=== PATIENT | female | born 1965 | race Caucasian/White ===

== ENCOUNTER 2019-05-04 10:54 | Emergency (ER) | payer MEDICAID ==
[2019-05-04 10:55] VITALS: BP_SYST 148
--- NOTE | 2019-05-04 10:55 | NUR ---
BROUGHT BACK TO BED #2 AND TRIAGED. PT WAS SENT HERE FROM DR LARIOS OFFICE. REPORT GIVEN TO CALI
--- NOTE | 2019-05-04 11:00 | NUR ---
Pt sent by Dr. Hi for c/o evaluation of DVT symptoms after long flight.
--- NOTE | 2019-05-04 11:28 | NUR ---
ER at bedside examining patient.
[2019-05-04 12:00] LABS: HEMATOCRIT 39.1 % (36-48); HEMOGLOBIN 13.5 g/dL (12.0-16.0); LYMPHOCYTES % (AUTO) 19.7 % (20.5-51.5); MEAN CORPUSCULAR HEMOGLOBIN 34 pg (27-31); MEAN CORPUSCULAR HGB CONC 35 % (32-36); MEAN CORPUSCULAR VOLUME 98 fL (79.0-98.0); MONOCYTES % (AUTO) 6.9 % (1.7-9.3); NEUTROPHILS % (AUTO) 70.7 % (40.0-70.0); PLATELET COUNT (AUTO) 340 K/uL (130-430); RED BLOOD CELL COUNT(AUTO) 3.99 MIL/uL (4.2-6.2); RED CELL DISTRIBUTION WIDTH 12.6 % (9.0-15.0); WHITE BLOOD COUNT (AUTO) 6.3 K/uL (4.8-10.8)
[2019-05-04 12:01] LABS: BASOPHILS % (AUTO) 0.8 % (0.0-2.0); EOSINOPHILS # (AUTO) 0.1 K/uL (0.0-0.4); EOSINOPHILS % (AUTO) 1.9 % (0.0-4.0); LYMPHOCYTES # (AUTO) 1.2 K/uL (1.0-5.5); MONOCYTES # (AUTO) 0.4 K/uL (0.0-1.0); NEUTROPHILS # (AUTO) 4.5 K/uL (1.8-7.7)
[2019-05-04 12:08] LABS: CALCIUM 9.3 mg/dL (8.4-11.0); POTASSIUM 3.5 mmol/L (3.5-5.1)
[2019-05-04 12:09] LABS: ALBUMIN 3.9 g/dL (3.4-4.8); CREATININE 0.6 mg/dL (0.55-1.30); TOTAL BILIRUBIN 0.3 mg/dL (0.0-1.0)
[2019-05-04 12:14] LABS: INR 0.9 (0.8-1.2); PROTHROMBIN TIME 9.4 SECS (9.5-12.5)
[2019-05-04 14:00] VITALS: BP_SYST 145
== END 2019-05-04 14:00 | disposition home or self-care (01) ==
LOC: SED 10:54
DX: M71.21 Synovial cyst of popliteal space [Baker], right knee (principal); R03.0 Elevated blood-pressure reading, without diagnosis of hypertension
CPT/HCPCS: 36415; 80053; 85025; 85379; 85610-TC; 93005; 93971; 99284

== ENCOUNTER 2019-12-09 16:09 | Emergency (ER) | payer MEDICAID ==
[~2019-12-09] VITALS: Ht 165.1 cm; Wt 57.2 kg
[2019-12-09 16:16] VITALS: BP_SYST 122
--- NOTE | 2019-12-09 18:08 | NUR ---
Patient to ER bed H1 to gown for evaluation. Side rails up.
--- NOTE | 2019-12-09 18:25 | NUR ---
Patient arrived via POV, AAOx4, and ambulatory with steady gait. Patient has c/c of non productive, dry cough, intermittent chest discomfort, and felt like she was going to vomit after hard coughing yesterday. Patient notes body aches, and runny nose. No reported fevers. Patient states she had slow onset of symptoms. Recent travel from [place] by plane. Patient calm and cooperative. Given mask. Will continue to follow up and monitor.
--- NOTE | 2019-12-09 19:06 | NUR ---
ER at bedside examining patient.
[2019-12-09 20:50] VITALS: BP_SYST 118
--- NOTE | 2019-12-09 20:50 | NUR ---
Patient given written and verbal discharge instructions and verbalizes understanding. ER MD discussed with patient the results and treatment provided. Patient in stable condition. ID arm band removed. Patient educated on pain management and to follow up with PMD. Pain Scale 0/10. Opportunity for questions provided and answered. Medication side effect fact sheet provided.
== END 2019-12-09 20:50 | disposition home or self-care (01) ==
LOC: SED 16:09
DX: J06.9 Acute upper respiratory infection, unspecified (principal); Z90.49 Acquired absence of other specified parts of digestive tract
CPT/HCPCS: 36415; 86710; 99283